=== PATIENT | male | born 1965 | race African-American/Black ===

== ENCOUNTER 2021-03-03 21:42 | Inpatient (IN) | payer OTHER, SELFPAY ==
[2021-03-03] MEDS ORDERED: Dextrose 50% Abboject 50 ML SYRINGE SLOW IVP PRN (22:53)
[2021-03-03] MEDS ORDERED: Guaifenesin DM 100-10/5 ML UDCUP PO PRN (22:53)
[2021-03-03] MEDS ORDERED: Senokot S 8.6-50 MG TAB PO PRN (22:53)
[2021-03-03] MEDS ORDERED: Dextrose 5% in Water 1,000 ML IV PRN (22:53)
[2021-03-03] MEDS ORDERED: Ondansetron PF 4 MG/2 ML Vial IVP PRN (22:53)
[2021-03-03] MEDS ORDERED: Calcium Carbonate 500 MG ChewTAB PO PRN (22:53)
[2021-03-03] MEDS ORDERED: Morphine 2 MG/ML VIAL SLOW IVP PRN (22:58)
[2021-03-03] MEDS ORDERED: Sodium Chloride 0.9% 500 ML IV SCH (23:15)
[2021-03-04] MEDS: Cefepime 1 GM in Sodium Chloride 0.9% 100 ML IVPB SCH ×3 (00:15→23:51)
[2021-03-04] MEDS: Acetaminophen 325 MG TAB PO PRN (00:15)
[2021-03-04] MEDS: HumaLOG 300 UNITS/3 ML VIAL SC PRN ×5 (00:49→20:28)
[2021-03-04] MEDS ORDERED: Vancomycin 1.5 GRAM/300 ML BAG 1.5 GM in Premix Bag 1 BAG IVPB SCH (01:00)
[2021-03-04] MEDS: Sodium Chloride 0.45% 1,000 ML IV SCH ×3 (02:06→16:11)
[2021-03-04 04:52] LABS: ALT (SGPT) 34 U/L (8-55); AST (SGOT) 41 U/L (5-34); Albumin 3.1 g/dL (3.5-5.0); Alkaline Phosphatase 74 U/L (40-110); Anion Gap 17 mmol/L (10-20); BUN (Urea Nitrogen) 58 mg/dL (8.4-25.7); Bilirubin, Total 0.3 mg/dL (0.2-1.2); CRP (Inflammatory) 22.34 mg/dL (= or < 0.5); Calc. Creatinine Clearance 30 mL/min (70-130); Calcium 9.1 mg/dL (7.8-10.44); Carbon Dioxide 21 mmol/L (22-29); Chloride 103 mmol/L (98-107); Globulin 3.6 g/dL (2.4-3.5); Glucose 333 mg/dL (70-105); Iron 8 ug/dL (65-175); Iron Binding Capacity, Total 185 mcg/dL (261-462); Potassium 4.2 mmol/L (3.5-5.1); Protein, Total 6.7 g/dL (6.0-8.3); Sodium 137 mmol/L (136-145)
[2021-03-04 06:28] LABS: Hemoglobin 9.3 g/dL (13.5-17.5); Mean Corpuscular HGB CONC 31.2 g/dL (32.0-36.0); Mean Corpuscular Hemoglobin 25.2 pg (27.0-33.0); Mean Corpuscular Volume 80.8 fl (81.2-95.1); Mean Platelet Volume 12.5 fl (7.4-10.4); Platelet Count 151 10x3/uL (150-450); RBC Distribution Width 13.6 % (11.5-14.5); Red Blood Cell (RBC) Count 3.69 10x6/uL (4.32-5.72)
[2021-03-04 07:39] LABS: Band 11 % (5-11); Lymphocytes 2 % (21-51); Monocytes 4 % (0-10); Neutrophil 83 % (42-75)
[2021-03-04 07:40] LABS: Burr Cells SLIGHT = 2-5 cells (100X) (0-1/hpf); MDiff Complete? YES
[2021-03-04 07:41] LABS: Platelet Morphology Comment Appears Adequate
[2021-03-04 09:20] LABS: Hemoglobin A1c 9.1 % (4.0-6.0)
[2021-03-04] MEDS: Heparin 5,000 UNITS/ML VIAL SC SCH ×2 (09:29→20:27)
[2021-03-04] MEDS: Famotidine/PF 20 mg/2ml Vial SLOW IVP SCH (09:29)
[2021-03-04] MEDS: Lantus 1000 UNITS/10 ML VIAL SC SCH (09:29)
[2021-03-04] MEDS: Aspirin 81 mg Enteric Coated Tablet PO SCH (09:30)
[2021-03-04] MEDS: Carvedilol 12.5 MG TAB PO SCH ×2 (09:30→16:12)
[2021-03-04 13:06] VITALS: BMI 21.9
[2021-03-04 17:11] LABS: Bilirubin Neg (Negative); Blood, Urine 150 (Negative); Clarity Cloudy (Clear); Glucose, Urine (Dipstick) 250 mg/dL (Negative); Ketone, Urine 5 mg/dL (Negative); Leukocyte Negative (Negative); Nitrite Negative (Negative); Protein, Urine (Dipstick) 100 mg/dl (Neg-Trace); Specific Gravity, Urine 1.015 (1.002-1.036); Urobilinogen Normal mg/dL (Less than 2)
[2021-03-04 17:20] LABS: Squamous Epithelial 0-3 HPF (0-3); WBC/HPF 0-3 HPF (0-3)
[2021-03-04 17:21] LABS: Bacteria/HPF 2+ HPF (None Seen); Mucous/LPF Rare LPF (<2+)
[2021-03-04] MEDS: Tamsulosin HCl 0.4 MG CAP PO SCH (20:26)
[2021-03-04] MEDS: HYDROcodone/Acetaminophen 5/325 mg Tablet PO PRN (20:27)
[2021-03-05] MEDS ORDERED: Vancomycin HCl 1 GM in Sodium Chloride 0.9% 250 ML 250 ML IVPB SCH (01:00)
[2021-03-05] MEDS ORDERED: Sodium Chloride 0.9% 250 ML 250 ML ONE (01:39)
[2021-03-05] MEDS: Sodium Chloride 0.45% 1,000 ML IV SCH ×3 (01:40→15:48)
[2021-03-05 05:21] LABS: Hemoglobin 9.5 g/dL (13.5-17.5); Mean Corpuscular HGB CONC 31.8 g/dL (32.0-36.0); Mean Corpuscular Volume 78.7 fl (81.2-95.1); Mean Platelet Volume 12.4 fl (7.4-10.4); Platelet Count 142 10x3/uL (150-450); RBC Distribution Width 13.8 % (11.5-14.5); White Blood Cell (WBC) Count 12.9 10x3/uL (3.5-10.5)
[2021-03-05 05:25] LABS: Anion Gap 16 mmol/L (10-20); BUN (Urea Nitrogen) 45 mg/dL (8.4-25.7); Calc. Creatinine Clearance 38 mL/min (70-130); Carbon Dioxide 21 mmol/L (22-29); Chloride 102 mmol/L (98-107); Glucose 158 mg/dL (70-105); Potassium 3.5 mmol/L (3.5-5.1); Sodium 135 mmol/L (136-145)
[2021-03-05 08:43] LABS: MDiff Complete? YES
[2021-03-05 09:11] LABS: Band 17 % (5-11); Lymphocytes 5 % (21-51); Monocytes 8 % (0-10); Neutrophil 70 % (42-75)
[2021-03-05 09:13] LABS: Microcytosis SLIGHT = 6-15 cells (100X) (0-5/hpf); Platelet Morphology Comment Appears Adequate
[2021-03-05] MEDS: Aspirin 81 mg Enteric Coated Tablet PO SCH (09:23)
[2021-03-05] MEDS: Folic Acid 1 MG TAB PO SCH (09:24)
[2021-03-05] MEDS: Famotidine/PF 20 mg/2ml Vial SLOW IVP SCH (09:24)
[2021-03-05] MEDS: Heparin 5,000 UNITS/ML VIAL SC SCH ×2 (09:24→21:25)
[2021-03-05] MEDS: Carvedilol 12.5 MG TAB PO SCH ×2 (09:24→17:44)
[2021-03-05] MEDS: Lantus 1000 UNITS/10 ML VIAL SC SCH (12:26)
[2021-03-05] MEDS: Cefepime 1 GM in Sodium Chloride 0.9% 100 ML IVPB SCH ×2 (12:55→21:30)
[2021-03-05] MEDS: HumaLOG 300 UNITS/3 ML VIAL SC PRN ×3 (13:06→21:25)
[2021-03-05] MEDS ORDERED: Metoclopramide HCl 10 MG/2 ML VIAL IVP SCH (13:30)
[2021-03-05] MEDS: Tamsulosin HCl 0.4 MG CAP PO SCH (21:23)
[2021-03-05] MEDS: metroNIDAZOLE 500 MG TAB PO SCH (21:23)
[2021-03-06] MEDS: Sodium Chloride 0.45% 1,000 ML IV SCH ×2 (00:17→06:14)
[2021-03-06 02:03] LABS: Vancomycin, Trough 13.3 ug/mL
[2021-03-06 06:14] LABS: Anion Gap 13 mmol/L (10-20); BUN (Urea Nitrogen) 34 mg/dL (8.4-25.7); Calc. Creatinine Clearance 45 mL/min (70-130); Calcium 8.7 mg/dL (7.8-10.44); Carbon Dioxide 24 mmol/L (22-29); Chloride 97 mmol/L (98-107); Glucose 190 mg/dL (70-105); Potassium 3.1 mmol/L (3.5-5.1); Sodium 131 mmol/L (136-145)
[2021-03-06 06:26] LABS: #Monocytes 1.9 10x3/uL (0.0-1.1); #Neutrophils 11.2 10x3/uL (1.5-8.4); %Basophils 0.2 % (0.0-2.0); %Lymphocytes 6.4 % (18.0-47.0); %Monocytes 13.4 % (0.0-10.0); %Neutrophils 79.3 % (40.0-75.0); Hemoglobin 9.7 g/dL (13.5-17.5); Mean Corpuscular Hemoglobin 25.2 pg (27.0-33.0); Mean Corpuscular Volume 78.7 fl (81.2-95.1); Mean Platelet Volume 12.3 fl (7.4-10.4); Platelet Count 150 10x3/uL (150-450); RBC Distribution Width 13.8 % (11.5-14.5); Red Blood Cell (RBC) Count 3.85 10x6/uL (4.32-5.72); White Blood Cell (WBC) Count 14.2 10x3/uL (3.5-10.5)
[2021-03-06] MEDS ORDERED: Potassium Chloride 20 MEQ TAB PO SCH (07:45)
[2021-03-06] MEDS: Aspirin 81 mg Enteric Coated Tablet PO SCH (08:49)
[2021-03-06] MEDS: Folic Acid 1 MG TAB PO SCH (08:49)
[2021-03-06] MEDS: Famotidine/PF 20 mg/2ml Vial SLOW IVP SCH (08:49)
[2021-03-06] MEDS: Heparin 5,000 UNITS/ML VIAL SC SCH ×2 (08:49→21:47)
[2021-03-06] MEDS: Lantus 1000 UNITS/10 ML VIAL SC SCH (08:49)
[2021-03-06] MEDS: metroNIDAZOLE 500 MG TAB PO SCH ×3 (08:49→21:48)
[2021-03-06] MEDS: Carvedilol 12.5 MG TAB PO SCH ×2 (08:49→16:48)
[2021-03-06] MEDS: Cefepime 1 GM in Sodium Chloride 0.9% 100 ML IVPB SCH ×2 (11:47→23:07)
[2021-03-06] MEDS: Acetaminophen 325 MG TAB PO PRN (11:50)
[2021-03-06 15:59] LABS: SARS-CoV-2 NAA Rapid Test Not Detected (NotDetected)
[2021-03-06] MEDS ORDERED: PROPOFOL 20 ML ONE (18:01)
[2021-03-06] MEDS ORDERED: Fentanyl 100 MCG/2 ML VIAL ONE (18:01)
[2021-03-06] MEDS ORDERED: Ondansetron PF 4 MG/2 ML Vial ONE (18:02)
[2021-03-06] MEDS ORDERED: Dexamethasone 20 MG/5 ML VIAL ONE (18:02)
[2021-03-06] MEDS ORDERED: Lidocaine 1% PF 5 ML VIAL ONE (18:02)
[2021-03-06] MEDS ORDERED: PHENYLEPHRINE-NS 100 MCG/ML 10 ML SYRINGE ONE (18:43)
[2021-03-06] MEDS ORDERED: ePHEDrine Sulfate 50 MG/10 ML VIAL ONE (18:52)
[2021-03-06] MEDS: HYDROcodone/Acetaminophen 5/325 mg Tablet PO PRN (21:48)
[2021-03-06] MEDS: Tamsulosin HCl 0.4 MG CAP PO SCH (21:48)
[2021-03-07] MEDS: HumaLOG 300 UNITS/3 ML VIAL SC PRN ×4 (06:21→21:08)
[2021-03-07 08:05] LABS: #Monocytes 0.7 10x3/uL (0.0-1.1); #Neutrophils 12.5 10x3/uL (1.5-8.4); %Basophils 0.1 % (0.0-2.0); %Lymphocytes 6.3 % (18.0-47.0); %Monocytes 4.6 % (0.0-10.0); %Neutrophils 88.1 % (40.0-75.0); Mean Corpuscular HGB CONC 31.3 g/dL (32.0-36.0); Mean Corpuscular Hemoglobin 24.9 pg (27.0-33.0); Mean Corpuscular Volume 79.8 fl (81.2-95.1); Mean Platelet Volume 12.2 fl (7.4-10.4); Platelet Count 170 10x3/uL (150-450); RBC Distribution Width 13.8 % (11.5-14.5); Red Blood Cell (RBC) Count 4.41 10x6/uL (4.32-5.72); White Blood Cell (WBC) Count 14.2 10x3/uL (3.5-10.5)
[2021-03-07] MEDS: HYDROcodone/Acetaminophen 5/325 mg Tablet PO PRN ×4 (08:05→21:14)
[2021-03-07] MEDS: Heparin 5,000 UNITS/ML VIAL SC SCH ×2 (08:06→21:08)
[2021-03-07] MEDS: Aspirin 81 mg Enteric Coated Tablet PO SCH (08:06)
[2021-03-07] MEDS: Folic Acid 1 MG TAB PO SCH (08:06)
[2021-03-07] MEDS: Carvedilol 12.5 MG TAB PO SCH ×2 (08:06→17:23)
[2021-03-07] MEDS: metroNIDAZOLE 500 MG TAB PO SCH ×3 (08:06→21:08)
[2021-03-07] MEDS: Famotidine/PF 20 mg/2ml Vial SLOW IVP SCH (08:07)
[2021-03-07] MEDS: Lantus 1000 UNITS/10 ML VIAL SC SCH (08:07)
[2021-03-07 08:25] LABS: Anion Gap 16 mmol/L (10-20); BUN (Urea Nitrogen) 43 mg/dL (8.4-25.7); Calc. Creatinine Clearance 43 mL/min (70-130); Calcium 8.9 mg/dL (7.8-10.44); Carbon Dioxide 21 mmol/L (22-29); Chloride 97 mmol/L (98-107); Glucose 425 mg/dL (70-105); Potassium 3.9 mmol/L (3.5-5.1); Sodium 130 mmol/L (136-145)
[2021-03-07] MEDS: Cefepime 1 GM in Sodium Chloride 0.9% 100 ML IVPB SCH (11:57)
[2021-03-07] MEDS: Tamsulosin HCl 0.4 MG CAP PO SCH (21:08)
[2021-03-08] MEDS: Cefepime 1 GM in Sodium Chloride 0.9% 100 ML IVPB SCH ×2 (01:28→12:34)
[2021-03-08] MEDS: HumaLOG 300 UNITS/3 ML VIAL SC PRN ×4 (06:11→21:20)
[2021-03-08 08:46] LABS: #Eosinphils 0.1 10x3/uL (0.0-0.5); #Monocytes 1.2 10x3/uL (0.0-1.1); #Neutrophils 9.6 10x3/uL (1.5-8.4); %Basophils 0.2 % (0.0-2.0); %Eosinophils 0.7 % (0.0-6.0); %Lymphocytes 13.3 % (18.0-47.0); %Monocytes 9.5 % (0.0-10.0); %Neutrophils 74.8 % (40.0-75.0); Hemoglobin 10.8 g/dL (13.5-17.5); Mean Corpuscular HGB CONC 33.2 g/dL (32.0-36.0); Mean Corpuscular Hemoglobin 25.5 pg (27.0-33.0); Mean Corpuscular Volume 76.8 fl (81.2-95.1); Platelet Count 171 10x3/uL (150-450); RBC Distribution Width 13.8 % (11.5-14.5); Red Blood Cell (RBC) Count 4.23 10x6/uL (4.32-5.72); White Blood Cell (WBC) Count 12.8 10x3/uL (3.5-10.5)
[2021-03-08 09:01] LABS: Anion Gap 13 mmol/L (10-20); BUN (Urea Nitrogen) 47 mg/dL (8.4-25.7); Calc. Creatinine Clearance 41 mL/min (70-130); Calcium 9.1 mg/dL (7.8-10.44); Carbon Dioxide 24 mmol/L (22-29); Chloride 99 mmol/L (98-107); Glucose 279 mg/dL (70-105); Potassium 3.6 mmol/L (3.5-5.1); Sodium 132 mmol/L (136-145)
[2021-03-08] MEDS ORDERED: Cyclobenzaprine 10 MG TAB PO SCH (09:15)
[2021-03-08] MEDS: Carvedilol 12.5 MG TAB PO SCH ×2 (10:11→16:57)
[2021-03-08] MEDS: Folic Acid 1 MG TAB PO SCH (10:12)
[2021-03-08] MEDS: Aspirin 81 mg Enteric Coated Tablet PO SCH (10:13)
[2021-03-08] MEDS: Heparin 5,000 UNITS/ML VIAL SC SCH ×2 (10:13→22:26)
[2021-03-08] MEDS: metroNIDAZOLE 500 MG TAB PO SCH ×3 (10:13→21:08)
[2021-03-08] MEDS: Famotidine/PF 20 mg/2ml Vial SLOW IVP SCH (10:14)
[2021-03-08] MEDS: Lantus 1000 UNITS/10 ML VIAL SC SCH (10:14)
[2021-03-08] MEDS: Lidocaine 5% Patch TD SCH (12:32)
[2021-03-08] MEDS: Tamsulosin HCl 0.4 MG CAP PO SCH (21:08)
[2021-03-08] MEDS: HYDROcodone/Acetaminophen 5/325 mg Tablet PO PRN (23:12)
[2021-03-08] MEDS: Transdermal Patch Removal TOP SCH ×2 (23:26)
[2021-03-09] MEDS: Cefepime 1 GM in Sodium Chloride 0.9% 100 ML IVPB SCH ×2 (00:39→11:55)
[2021-03-09 05:39] LABS: #Eosinphils 0.1 10x3/uL (0.0-0.5); #Monocytes 1.4 10x3/uL (0.0-1.1); #Neutrophils 8.4 10x3/uL (1.5-8.4); %Basophils 0.3 % (0.0-2.0); %Eosinophils 0.6 % (0.0-6.0); %Lymphocytes 17.1 % (18.0-47.0); %Neutrophils 68.6 % (40.0-75.0); Hemoglobin 10.4 g/dL (13.5-17.5); Mean Corpuscular HGB CONC 32.6 g/dL (32.0-36.0); Mean Corpuscular Hemoglobin 25.1 pg (27.0-33.0); Mean Corpuscular Volume 77.1 fl (81.2-95.1); Mean Platelet Volume 11.8 fl (7.4-10.4); Platelet Count 182 10x3/uL (150-450); RBC Distribution Width 13.8 % (11.5-14.5); Red Blood Cell (RBC) Count 4.14 10x6/uL (4.32-5.72); White Blood Cell (WBC) Count 12.3 10x3/uL (3.5-10.5)
[2021-03-09 05:50] LABS: Anion Gap 13 mmol/L (10-20); BUN (Urea Nitrogen) 32 mg/dL (8.4-25.7); Calc. Creatinine Clearance 50 mL/min (70-130); Calcium 8.9 mg/dL (7.8-10.44); Carbon Dioxide 25 mmol/L (22-29); Chloride 100 mmol/L (98-107); Glucose 196 mg/dL (70-105); Potassium 3.4 mmol/L (3.5-5.1); Sodium 135 mmol/L (136-145)
[2021-03-09] MEDS: HumaLOG 300 UNITS/3 ML VIAL SC PRN ×4 (06:33→21:21)
[2021-03-09] MEDS ORDERED: Potassium Chloride 20 MEQ TAB PO SCH (07:45)
[2021-03-09] MEDS: Aspirin 81 mg Enteric Coated Tablet PO SCH (09:44)
[2021-03-09] MEDS: Carvedilol 12.5 MG TAB PO SCH ×2 (09:45→17:07)
[2021-03-09] MEDS: metroNIDAZOLE 500 MG TAB PO SCH ×3 (09:47→21:21)
[2021-03-09] MEDS: Folic Acid 1 MG TAB PO SCH (09:48)
[2021-03-09] MEDS: Lantus 1000 UNITS/10 ML VIAL SC SCH (09:49)
[2021-03-09] MEDS: Famotidine/PF 20 mg/2ml Vial SLOW IVP SCH (09:50)
[2021-03-09] MEDS: Heparin 5,000 UNITS/ML VIAL SC SCH ×2 (09:50→21:21)
[2021-03-09] MEDS ORDERED: Lidocaine 5% Patch TD SCH (10:00)
[2021-03-09] MEDS ORDERED: levETIRAcetam 500 MG TAB PO SCH ×2 (10:30→21:00)
[2021-03-09] MEDS ORDERED: Escitalopram Oxalate 10 mg Tablet PO SCH (10:30)
[2021-03-09] MEDS ORDERED: levETIRAcetam 500 mg/5 ml Oral Solution PO SCH (11:15)
[2021-03-09] MEDS ORDERED: Lidocaine 1% PF 5 ML VIAL ONE (11:38)
[2021-03-09] MEDS ORDERED: Sodium Bicarbonate 2.5 MEQ/5 ML VIAL ONE (11:38)
[2021-03-09] MEDS: Lidocaine 5% Patch TD SCH (11:53)
[2021-03-09] MEDS: levETIRAcetam 500 mg/5 ml Oral Solution PO SCH (21:21)
[2021-03-09] MEDS: Tamsulosin HCl 0.4 MG CAP PO SCH (21:21)
[2021-03-10] MEDS: Transdermal Patch Removal TOP SCH ×2 (00:49)
[2021-03-10] MEDS: Cefepime 1 GM in Sodium Chloride 0.9% 100 ML IVPB SCH ×2 (00:50→12:17)
[2021-03-10 06:02] LABS: #Basophils 0.1 10x3/uL (0.0-0.2); #Eosinphils 0.1 10x3/uL (0.0-0.5); #Monocytes 1.1 10x3/uL (0.0-1.1); #Neutrophils 8.4 10x3/uL (1.5-8.4); %Basophils 0.4 % (0.0-2.0); %Lymphocytes 18.7 % (18.0-47.0); %Monocytes 8.7 % (0.0-10.0); %Neutrophils 68.6 % (40.0-75.0); Hemoglobin 9.7 g/dL (13.5-17.5); Mean Corpuscular HGB CONC 32.1 g/dL (32.0-36.0); Mean Corpuscular Hemoglobin 24.8 pg (27.0-33.0); Mean Corpuscular Volume 77.2 fl (81.2-95.1); Mean Platelet Volume 10.9 fl (7.4-10.4); Platelet Count 209 10x3/uL (150-450); RBC Distribution Width 14.1 % (11.5-14.5); Red Blood Cell (RBC) Count 3.91 10x6/uL (4.32-5.72); White Blood Cell (WBC) Count 12.2 10x3/uL (3.5-10.5)
[2021-03-10 06:07] LABS: Anion Gap 11 mmol/L (10-20); BUN (Urea Nitrogen) 22 mg/dL (8.4-25.7); Calc. Creatinine Clearance 53 mL/min (70-130); Calcium 8.8 mg/dL (7.8-10.44); Carbon Dioxide 29 mmol/L (22-29); Chloride 101 mmol/L (98-107); Glucose 175 mg/dL (70-105); Potassium 3.6 mmol/L (3.5-5.1); Sodium 137 mmol/L (136-145)
[2021-03-10] MEDS ORDERED: Escitalopram Oxalate 10 mg Tablet PO SCH (09:00)
[2021-03-10] MEDS: Aspirin 81 mg Enteric Coated Tablet PO SCH (09:29)
[2021-03-10] MEDS: metroNIDAZOLE 500 MG TAB PO SCH (09:29)
[2021-03-10] MEDS: Folic Acid 1 MG TAB PO SCH (09:30)
[2021-03-10] MEDS: Carvedilol 12.5 MG TAB PO SCH (09:30)
[2021-03-10] MEDS: Heparin 5,000 UNITS/ML VIAL SC SCH (09:30)
[2021-03-10] MEDS: Famotidine/PF 20 mg/2ml Vial SLOW IVP SCH (09:30)
[2021-03-10] MEDS: levETIRAcetam 500 mg/5 ml Oral Solution PO SCH (09:30)
[2021-03-10] MEDS: Lantus 1000 UNITS/10 ML VIAL SC SCH (11:34)
[2021-03-10] MEDS: Lidocaine 5% Patch TD SCH (12:18)
[2021-03-10] MEDS: HumaLOG 300 UNITS/3 ML VIAL SC PRN (12:19)
[2021-03-10 12:23] VITALS: BP 134/74; TEMP 98
== END 2021-03-10 16:05 | disposition home or self-care (01) | DRG 854 ==
LOC: CSHTELE 21:42
PROVIDERS: ADMIT Student in an Organized Health Care Education/Training Program; ATTEND Family Medicine
PROC: 0QBM0ZZ Excision of Left Tarsal, Open Approach (ICD-10-PCS; principal; 2021-03-06)
DX: A41.01 Sepsis due to Methicillin susceptible Staphylococcus aureus (principal); M86.172 Other acute osteomyelitis, left ankle and foot; N17.9 Acute kidney failure, unspecified; L02.612 Cutaneous abscess of left foot; E44.0 Moderate protein-calorie malnutrition; Z20.822 Contact with and (suspected) exposure to COVID-19; E11.69 Type 2 diabetes mellitus with other specified complication; E11.65 Type 2 diabetes mellitus with hyperglycemia; E11.51 Type 2 diabetes mellitus with diabetic peripheral angiopathy without gangrene; D69.6 Thrombocytopenia, unspecified; N40.0 Benign prostatic hyperplasia without lower urinary tract symptoms; D50.9 Iron deficiency anemia, unspecified; E11.22 Type 2 diabetes mellitus with diabetic chronic kidney disease; I12.9 Hypertensive chronic kidney disease with stage 1 through stage 4 chronic kidney disease, or unspecified chronic kidney disease; N18.30 Chronic kidney disease, stage 3 unspecified; E11.621 Type 2 diabetes mellitus with foot ulcer; Z79.84 Long term (current) use of oral hypoglycemic drugs; Z79.899 Other long term (current) drug therapy; E11.628 Type 2 diabetes mellitus with other skin complications; Z68.21 Body mass index [BMI] 21.0-21.9, adult
CPT/HCPCS: 36415; 36416; 76770; 80048; 80053; 80202; 81001; 82607; 82746; 83036; 83540; 83550; 84145; 85025; 85652; 86140; 87040; 87077; 87149; 87186; 93923; J0692; J1100; J1644; J1815; J2405; J2704; J2765; J3010; J3370; J3490; J7050; S0028; U0002

== ENCOUNTER 2021-03-13 17:47 | Outpatient (CLI) | payer OTHER ==
[2021-03-13 20:08] LABS: SARS-CoV-2 NAA Rapid Test Not Detected (NotDetected)
== END 2021-03-13 17:48 | disposition home or self-care (01) ==
LOC: CSHLAB 17:47
PROVIDERS: ATTEND Surgery
DX: Z01.818 Encounter for other preprocedural examination (principal); Z20.822 Contact with and (suspected) exposure to COVID-19
CPT/HCPCS: 93005; 93010; U0002

== ENCOUNTER 2021-03-14 08:02 | Inpatient (IN) | payer OTHER ==
[2021-03-14] MEDS ORDERED: Lidocaine 1% MPF 2 ML VIAL ONE (09:04)
[2021-03-14] MEDS ORDERED: Lidocaine 1% PF 5 ML VIAL ONE (10:03)
[2021-03-14] MEDS ORDERED: PROPOFOL 20 ML ONE (10:03)
[2021-03-14] MEDS ORDERED: Ondansetron PF 4 MG/2 ML Vial ONE (10:03)
[2021-03-14] MEDS ORDERED: Fentanyl 100 MCG/2 ML VIAL ONE (10:03)
[2021-03-14] MEDS ORDERED: Glycopyrrolate 0.2 MG/ML 5 ML SYRINGE ONE (10:03)
[2021-03-14] MEDS ORDERED: Midazolam HCl 2 mg/2 ml Vial ONE (10:03)
[2021-03-14] MEDS ORDERED: PHENYLEPHRINE-NS 100 MCG/ML 10 ML SYRINGE ONE (10:25)
[2021-03-14] MEDS ORDERED: ePHEDrine Sulfate 50 MG/10 ML VIAL ONE (10:35)
[2021-03-14] MEDS ORDERED: Ondansetron PF 4 MG/2 ML Vial IVP PRN (12:31)
[2021-03-14] MEDS ORDERED: hydrALAZINE 20 MG/ML VIAL SLOW IVP PRN (12:31)
[2021-03-14] MEDS ORDERED: Morphine 4 MG/ML VIAL SLOW IVP PRN (12:31)
[2021-03-14] MEDS ORDERED: Promethazine HCl 25 MG/ML VIAL IM PRN (12:31)
[2021-03-14] MEDS ORDERED: Morphine 2 MG/ML VIAL ONE (14:47)
[2021-03-14] MEDS: Ketorolac Tromethamine 30 MG/ML VIAL IVP SCH ×2 (20:27→23:58)
[2021-03-14] MEDS ORDERED: Famotidine/PF 20 mg/2ml Vial SLOW IVP SCH (21:00)
[2021-03-14] MEDS: metFORMIN 500 MG TAB PO SCH (23:21)
[2021-03-14] MEDS: Carvedilol 12.5 MG TAB PO SCH (23:21)
[2021-03-14] MEDS: D5 1/2 NS w/20 mEq KCL 1,000 ML IV SCH (23:26)
[2021-03-14] MEDS: levETIRAcetam 500 mg/5 ml Oral Solution PO SCH (23:56)
[2021-03-15] MEDS: D5 1/2 NS w/20 mEq KCL 1,000 ML IV SCH ×2 (01:36→05:30)
[2021-03-15 05:24] LABS: #Monocytes 0.8 10x3/uL (0.0-1.1); #Neutrophils 7.2 10x3/uL (1.5-8.4); %Basophils 0.4 % (0.0-2.0); %Eosinophils 0.4 % (0.0-6.0); %Lymphocytes 14.1 % (18.0-47.0); %Monocytes 8.6 % (0.0-10.0); %Neutrophils 76.1 % (40.0-75.0); Hemoglobin 7.9 g/dL (13.5-17.5); Mean Corpuscular HGB CONC 31.7 g/dL (32.0-36.0); Mean Corpuscular Hemoglobin 24.8 pg (27.0-33.0); Mean Corpuscular Volume 78.3 fl (81.2-95.1); Mean Platelet Volume 10.7 fl (7.4-10.4); Platelet Count 210 10x3/uL (150-450); RBC Distribution Width 14.6 % (11.5-14.5); Red Blood Cell (RBC) Count 3.18 10x6/uL (4.32-5.72); White Blood Cell (WBC) Count 9.5 10x3/uL (3.5-10.5)
[2021-03-15 05:37] LABS: Anion Gap 11 mmol/L (10-20); BUN (Urea Nitrogen) 22 mg/dL (8.4-25.7); Calc. Creatinine Clearance 39 mL/min (70-130); Calcium 8.3 mg/dL (7.8-10.44); Carbon Dioxide 27 mmol/L (22-29); Chloride 98 mmol/L (98-107); Glucose 443 mg/dL (70-105); Potassium 4.3 mmol/L (3.5-5.1); Sodium 132 mmol/L (136-145)
[2021-03-15] MEDS: Ketorolac Tromethamine 30 MG/ML VIAL IVP SCH (06:02)
[2021-03-15] MEDS ORDERED: Dextrose 50% Abboject 50 ML SYRINGE SLOW IVP PRN (06:37)
[2021-03-15] MEDS ORDERED: Dextrose 5% in Water 1,000 ML IV PRN (06:37)
[2021-03-15] MEDS: HumaLOG 300 UNITS/3 ML VIAL SC PRN ×4 (07:21→21:50)
[2021-03-15] MEDS: Carvedilol 12.5 MG TAB PO SCH ×2 (10:04→21:48)
[2021-03-15] MEDS: Escitalopram Oxalate 10 mg Tablet PO SCH (10:04)
[2021-03-15] MEDS: Enoxaparin Sodium 40 MG/0.4 ML SYRINGE SC SCH (10:04)
[2021-03-15] MEDS: Atorvastatin Calcium 40 MG TAB PO SCH (10:04)
[2021-03-15] MEDS: levETIRAcetam 500 mg/5 ml Oral Solution PO SCH ×2 (10:04→21:48)
[2021-03-15] MEDS: Famotidine/PF 20 mg/2ml Vial SLOW IVP SCH (10:05)
[2021-03-15] MEDS: 1/2 NS w/KCL 20 mEq 1,000 ML IV SCH ×2 (13:15→21:30)
[2021-03-15] MEDS: HYDROcodone/Acetaminophen 7.5/325 mg Tablet PO PRN ×2 (13:16→19:46)
[2021-03-15] MEDS: metFORMIN 500 MG TAB PO SCH (21:48)
[2021-03-16 01:29] VITALS: BMI 21.7
[2021-03-16] MEDS: HYDROcodone/Acetaminophen 7.5/325 mg Tablet PO PRN ×3 (04:32→17:58)
[2021-03-16 05:10] LABS: Anion Gap 11 mmol/L (10-20); BUN (Urea Nitrogen) 18 mg/dL (8.4-25.7); Calc. Creatinine Clearance 55 mL/min (70-130); Calcium 8.4 mg/dL (7.8-10.44); Carbon Dioxide 28 mmol/L (22-29); Chloride 99 mmol/L (98-107); Glucose 248 mg/dL (70-105); Potassium 4.5 mmol/L (3.5-5.1); Sodium 133 mmol/L (136-145)
[2021-03-16] MEDS: HumaLOG 300 UNITS/3 ML VIAL SC PRN ×2 (05:44→14:07)
[2021-03-16] MEDS: 1/2 NS w/KCL 20 mEq 1,000 ML IV SCH ×2 (05:45→11:43)
[2021-03-16] MEDS: Enoxaparin Sodium 40 MG/0.4 ML SYRINGE SC SCH (11:24)
[2021-03-16] MEDS: Carvedilol 12.5 MG TAB PO SCH (11:24)
[2021-03-16] MEDS: Escitalopram Oxalate 10 mg Tablet PO SCH (11:24)
[2021-03-16] MEDS: Atorvastatin Calcium 40 MG TAB PO SCH (11:24)
[2021-03-16] MEDS: Famotidine/PF 20 mg/2ml Vial SLOW IVP SCH (11:25)
[2021-03-16] MEDS: levETIRAcetam 500 mg/5 ml Oral Solution PO SCH (11:25)
[2021-03-16 16:41] VITALS: BP 120/63; TEMP 98
== END 2021-03-16 18:37 | disposition home or self-care (01) | DRG 618 ==
LOC: CSHSDC 08:02 → CSHTELE 12:31 → EDSTATUS 14:34 → UNDOADMIN 03-15 00:48 → CSHTELE 03-15 00:48
PROVIDERS: ADMIT Surgery; ATTEND Surgery
PROC: 0Y6J0Z2 Detachment at Left Lower Leg, Mid, Open Approach (ICD-10-PCS; principal; 2021-03-14)
DX: E11.621 Type 2 diabetes mellitus with foot ulcer (principal); Z79.4 Long term (current) use of insulin; E11.65 Type 2 diabetes mellitus with hyperglycemia; E78.5 Hyperlipidemia, unspecified; N17.9 Acute kidney failure, unspecified; I12.9 Hypertensive chronic kidney disease with stage 1 through stage 4 chronic kidney disease, or unspecified chronic kidney disease; E11.22 Type 2 diabetes mellitus with diabetic chronic kidney disease; N18.9 Chronic kidney disease, unspecified
CPT/HCPCS: 36415; 36416; 80048; 85025; 88307; 88311; 94760; J0690; J1650; J1815; J1885; J2250; J2270; J2405; J2704; J3010; J3480; S0028

== ENCOUNTER 2021-03-25 13:34 | Emergency (ER) | payer OTHER ==
[2021-03-25] MEDS ORDERED: HYDROcodone/Acetaminophen 10/325 mg Tablet ONE (14:17)
[2021-03-25] MEDS ORDERED: Lidocaine 1% w/Epinephrine 1:100K 20 ML VIAL ONE (15:17)
== END 2021-03-25 16:20 | disposition home or self-care (01) ==
LOC: CSHERS 13:34
DX: T81.30XA Disruption of wound, unspecified, initial encounter (principal); E11.9 Type 2 diabetes mellitus without complications; I10 Essential (primary) hypertension
CPT/HCPCS: 12020